=== PATIENT | male | born 1980 | race African-American/Black ===

== ENCOUNTER 2023-09-12 21:27 | Emergency (ER) | payer SELFPAY | END 2023-09-12 22:47 | disposition home or self-care (01) | LOC: JD.ED 21:27 | DX: L20.9 Atopic dermatitis, unspecified (principal); L73.9 Follicular disorder, unspecified; F17.210 Nicotine dependence, cigarettes, uncomplicated; Z91.013 Allergy to seafood | CPT/HCPCS: 99282; 99283 ==